=== PATIENT | female | born 1935 | race Caucasian/White ===

== ENCOUNTER 2021-04-09 11:44 | Inpatient (IN) | payer OTHER ==
[~2021-04-09] VITALS: Ht 165 cm; Wt 69.0 kg
[2021-04-09 12:57] LABS: BILIRUBIN NEGATIVE (NEGATIVE); BLOOD NEGATIVE Ery/uL (NEGATIVE); CLARITY CLEAR (CLEAR); COLOR YELLOW (YELLOW); GLUCOSE (U) NORMAL (NORMAL); LEUKOCYTES NEGATIVE Leu/uL (NEGATIVE); NITRITE NEGATIVE (NEGATIVE); PROTEIN NEGATIVE (NEGATIVE); SPECIFIC GRAVITY 1.025 (1.001-1.030); UROBILINOGEN 0.2 mg/dL (0.2-1.0)
[2021-04-09 13:43] LABS: CREATININE 0.93 mg/dL (0.51-0.95); POTASSIUM 3.3 mmol/L (3.5-5.1)
[2021-04-09 13:44] LABS: ALBUMIN 3.1 g/dL (3.4-5.0); BILIRUBIN - TOTAL 0.4 mg/dL (0.2-1.0); GLOBULIN (CALCULATION) 3.9 g/dL; MAGNESIUM 1.9 mg/dL (1.8-2.4)
[2021-04-09 13:48] LABS: BASOPHIL 0.3 % (0-2); EOSINOPHIL 0.3 % (0-7); HCT 19.7 % (37.0-47.0); MCH 15.4 pg (25.0-31.0); MCHC 24.9 g/dL (32.0-36.0); MCV 61.8 fL (78.0-100.0); MONOCYTE 13.3 % (0-12); MPV 9.5 fL (6.0-9.5); NEUTROPHIL 61.4 % (41-80); NRBC 0.4; PLT 447 K/uL (150-400); RBC 3.19 M/uL (4.20-5.40); RDW 27.8 % (11.5-14.0); WBC 7.1 K/uL (4.0-10.5)
[2021-04-09 13:52] LABS: HGB 4.9 g/dl (12.5-16.0)
[2021-04-09 14:19] LABS: RETICULOCYTE COUNT 4.8 % (1.0-2.0)
[2021-04-09 14:47] LABS: IRON % SATURATION 86.4 %SAT (20-50)
[2021-04-09 15:20] LABS: FOLIC ACID (SERUM) 12.9 ng/mL (8.6-58.9)
[2021-04-09] MEDS ORDERED: VERAPAMIL ER240 MG PO (15:41)
[2021-04-09] MEDS ORDERED: ELIQUIS5 MG PO (15:42)
[2021-04-09] MEDS ORDERED: METOPROLOL SUCC50 MG PO (15:43)
[2021-04-09] MEDS ORDERED: ATORVASTATIN CA40 MG PO (15:43)
[2021-04-09] MEDS ORDERED: ASPIRIN EC81 MG PO (15:45)
[2021-04-09] MEDS ORDERED: VERAPAMIL ER240 M1 PO (15:48)
[2021-04-09] MEDS ORDERED: GLUCOSAMINE &1 EACH PO (15:51)
[2021-04-09] MEDS ORDERED: FERRETTS325 MG PO (16:04)
[2021-04-09] MEDS ORDERED: 3IN1 COMMODE (16:04)
[2021-04-09 23:35] LABS: HCT 23.4 % (37.0-47.0); HGB 6.9 g/dL (12.5-16.0)
[2021-04-10 06:11] LABS: BASOPHIL 0.7 % (0-2); EOSINOPHIL 1.2 % (0-7); HCT 26.1 % (37.0-47.0); LYMPHOCYTE 30.7 % (15-48); MONOCYTE 14.3 % (0-12); MPV 10.1 fL (6.0-9.5); NEUTROPHIL 52.5 % (41-80); PLT 392 K/uL (150-400); RBC 3.74 M/uL (4.20-5.40); RDW 33.3 % (11.5-14.0)
[2021-04-10 06:17] LABS: HGB 7.7 g/dl (12.5-16.0); MCV 69.8 fL (78.0-100.0)
[2021-04-10 06:18] LABS: MCH 20.6 pg (25.0-31.0); MCHC 29.5 g/dL (32.0-36.0); WBC 7.2 K/uL (4.0-10.5)
[2021-04-10 07:03] LABS: BAND 3 % (0-10); LYMPHOCYTE(M) 36 % (15-48); MONOCYTE(M) 12 % (0-12); NEUTROPHILS(M) 49 % (41-80)
[2021-04-10 07:04] LABS: ANISOCYTOSIS SLIGHT; CREATININE 0.71 mg/dL (0.51-0.95); PLATELET ESTIMATE NORMAL; PLATELET MORPHOLOGY NORMAL; POTASSIUM 3.7 mmol/L (3.5-5.1)
[2021-04-10] MEDS ORDERED: VALSARTAN-HCTZ1 EACH PO (11:09)
[2021-04-10 14:17] LABS: INR 1.3 (0.9-1.2); PROTHROMBIN TIME 15.4 SECONDS (11.4-13.6); PTT 30.9 SECONDS (22.2-34.7)
--- NOTE | 2021-04-10 15:59 | NUR ---
GOT IM SIGNED BY PATIENT SHE IS NOW INPATIENT. PATIENT WANTED TO KNOW IF SHE WAS GOING TO BE NPO FOR HER PROCEDURE TOMORROW. I ADVISED PT. THAT I WOULD LET HER NURSE KNOW HER QUESTION. TOLD TYSON SILVER ABOUT PT. QUESTION RE: NPO. ADRIANNE STATED THAT SHE WOULD SEE THE PATIENT AND TELL HER THAT SHE WOULD BE NPO
[2021-04-11 06:16] LABS: INR 1.22 (0.9-1.2); PROTHROMBIN TIME 14.6 SECONDS (11.4-13.6); PTT 30.3 SECONDS (22.2-34.7)
[2021-04-11 06:46] LABS: BASOPHIL 0.6 % (0-2); EOSINOPHIL 1.6 % (0-7); HCT 32.8 % (37.0-47.0); HGB 9.8 g/dl (12.5-16.0); MCH 21.4 pg (25.0-31.0); MCHC 29.9 g/dL (32.0-36.0); MCV 71.6 fL (78.0-100.0); MONOCYTE 13.1 % (0-12); MPV 9.4 fL (6.0-9.5); NEUTROPHIL 65.5 % (41-80); NRBC 0.3; PLT 381 K/uL (150-400); RBC 4.58 M/uL (4.20-5.40); RDW 33.9 % (11.5-14.0); WBC 8.6 K/uL (4.0-10.5)
[2021-04-11 07:02] LABS: EOSINOPHIL(M) 2 % (0-7); LYMPHOCYTE(M) 21 % (15-48); MONOCYTE(M) 11 % (0-12); NEUTROPHILS(M) 67 % (41-80); TOTAL CELL COUNT 200
[2021-04-11 07:03] LABS: PLATELET ESTIMATE NORMAL; PLATELET MORPHOLOGY GIANT
[2021-04-11 07:04] LABS: ANISOCYTOSIS MARKED; POIKILOCYTOSIS MARKED
[2021-04-11 07:05] LABS: POLYCHROMASIA SLIGHT
[2021-04-11 07:06] LABS: ACANTHOCYTES (THORN CELLS) 1+; SCHISTOCYTES 1+
[2021-04-11 07:08] LABS: TARGET CELLS 1+
[2021-04-11 07:09] LABS: DACRYOCYTES (TEAR DROP CELLS) RARE; SPHEROCYTES RARE
[2021-04-11 07:10] LABS: CREATININE 0.74 mg/dL (0.51-0.95); POTASSIUM 3.9 mmol/L (3.5-5.1)
== END 2021-04-11 17:40 | disposition home or self-care (01) | DRG 812 ==
LOC: FER 11:44 → FMS 14:12
PROVIDERS: Emergency Medicine; Nurse Practitioner; Surgery; ADMIT Internal Medicine
PROC: 30233N1 Transfusion of Nonautologous Red Blood Cells into Peripheral Vein, Percutaneous Approach (ICD-10-PCS; 2021-04-09)
PROC: 30233N1 Transfusion of Nonautologous Red Blood Cells into Peripheral Vein, Percutaneous Approach (ICD-10-PCS; 2021-04-10)
PROC: 07DR3ZX Extraction of Iliac Bone Marrow, Percutaneous Approach, Diagnostic (ICD-10-PCS; principal; 2021-04-11 12:15)
DX: D46.9 Myelodysplastic syndrome, unspecified (principal); I48.0 Paroxysmal atrial fibrillation; I10 Essential (primary) hypertension; E78.5 Hyperlipidemia, unspecified; R19.5 Other fecal abnormalities; Z20.822 Contact with and (suspected) exposure to COVID-19; Z79.01 Long term (current) use of anticoagulants; Z86.73 Personal history of transient ischemic attack (TIA), and cerebral infarction without residual deficits; Z79.82 Long term (current) use of aspirin; Z79.899 Other long term (current) drug therapy; Z88.7 Allergy status to serum and vaccine; Z98.890 Other specified postprocedural states; Z90.89 Acquired absence of other organs
CPT/HCPCS: 36415; 36430; 80048; 80053; 81003; 82607; 82728; 82746; 83010; 83540; 83550; 83615; 83735; 84443; 85014; 85018; 85025; 85610; 85730; 86850; 86880; 86900; 86901; 86922; 88305; 88341; 88342; 99285; J1644; J1650; J1940; J2704; J3010; J3420; J7050; J7120; P9016; U0002